=== PATIENT | female | born 1985 | race Caucasian/White ===

== ENCOUNTER 2018-04-10 07:30 | Emergency (ER) | payer OTHER | END 2018-04-10 09:59 | disposition home or self-care (01) | LOC: FTE 07:30 | DX: S99.922A Unspecified injury of left foot, initial encounter (principal); X58.XXXA Exposure to other specified factors, initial encounter; Y92.9 Unspecified place or not applicable | CPT/HCPCS: 73610; 73630-LT; 99283-25 ==